=== PATIENT | female | born 1945 | race Caucasian/White ===

== ENCOUNTER 2024-12-14 17:03 | Emergency (ER) | payer OTHER, MEDICARE ==
--- NOTE | 2024-12-14 18:00 | RAD REPORT ---
EXAMINATION: CT HEAD WITHOUT CONTRAST CT CERVICAL SPINE WITHOUT CONTRAST CLINICAL INDICATION: Head and neck injury status post fall. Head and neck pain TECHNIQUE: Axial CT images from the skull base to the vertex without intravenous contrast. Axial CT i mages through the cervical spine were obtained without intravenous contrast. Sagittal and coronal reformatted images were created from the data set. Coronal and sagittal reformatted images were creat ed from the data set. One or more of the following dose reduction techniques were used: Automated exposure control, adjustment of the mA and/or kV according to patient size, and/or iterative reconstr uction. Unless otherwise specified, incidental findings do not require dedicated imaging follow-up. [id number]. Comparison: 2012 FINDINGS: An intracranial bleed is not seen. Ventricles are normal in caliber. No significant hypodensity within the brain No extra-axial fluid collection. No fluid within the sinuses/mastoids Some images are created by patient motion artifact. No fracture or dislocation is seen involving the cervical spine. IMPRESSION: No acute intracranial abnormality noted A cervical fracture is not seen. If the patient continues to have symptoms to suggest acute TICKER WIRER/spinal pathology then MRI would be rec ommended
--- NOTE | 2024-12-14 18:00 | RAD REPORT ---
EXAM: CT CHEST, ABDOMEN AND PELVIS WITHOUT CONTRAST CLINICAL INDICATION: Chest and abdominal pain status post fall TECHNIQUE: CT chest, abdomen and pelvis was performed, without IV contrast, as per department protoco l. Axial, sagittal and coronal reconstructions were obtained. One or more of the following dose reduction techniques were used: Automated exposure control, adjustment of the mA and/or kV according to the patient size, and/or iterative reconstruction. Unless otherwise specified, incidental findings do not require dedicated imaging follow-up. The lack of IV and oral contrast limits evaluation of the mediastinum, artis, vessels, organs and amalia l. COMPARISON: None FINDINGS: A pulmonary contusion not seen. No mediastinal hematoma. Watchman device within the heart. Multiple, bilateral pulmonary nodules vary in size from 1 to 7 mm. No pleural effusion. No pericardial effusion. Liver, spleen, pancreas, adrenals kidneys and bladder do not demonstrate a traumatic injury. Mild to moderate right hydronephrosis. An obstructing ureteral calculus not seen. Several right renal calculi are present. Large amount stool throughout the colon. There is no evidence of diverticulitis Postsurgical changes lumbar spine Neurostimulator device in place. Contusion subcutaneous tissues left hip. 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
--- NOTE | 2024-12-14 18:07 | EDPHYS ---
Physician Documentation [facility] Name: Mimi Carney Age: 79 yrs Sex: Female : 1945 Arrival Date: 12/14/2024 Time: 17:03 Bed 17 Private MD: ED Physician Alexandru Law HPI: 12/14 17:10 This 79 yrs old Female presents to ER via Unassigned with complaints of fall. sb4 17:12 Sustained a mechanical fall this afternoon, hit her head and landed on her left sb4 hip/lower back. No loss of consciousness, is on Plavix. Was able to ambulate. Is mainly complaining of pain in her left hip/lower back. Has no other injuries or complaints at this time. Historical: - Allergies: 17:17 NSAIDS; jb4 17:17 tramadol; jb4 17:17 Vioxx; jb4 - PMHx: 17:17 Lung Ca; thyroid CA; HTN; jb4 - PSHx: 17:17 Watchmens procedure; bladder stimulator; jb4 - Immunization history:: Adult Immunizations up to date. - Infectious Disease History:: Denies. - Social history:: Smoking status: Patient denies any tobacco usage or history of. ROS: 17:12 Constitutional: Negative for fever, chills, and weight loss, sb4 17:12 MS/extremity: Positive for injury or acute deformity, pain, of the left hip, 17:12 All other systems are negative, Exam: 17:12 Constitutional: This is a well developed, well nourished patient who is awake, alert, sb4 and in no acute distress. Head/Face: Normocephalic, atraumatic. Eyes: Extra-ocular motions intact. Periorbital areas with no swelling, redness, or edema. ENT: Mucous membranes moist. Respiratory: No increased work of breathing, no retractions or nasal flaring. Abdomen/GI: Soft, non-tender, no distension. Skin: Warm, dry with normal turgor. Normal color with no rashes, no lesions, and no evidence of cellulitis. MS/ Extremity: Pulses equal, no cyanosis. Neurovascular intact. Full, normal range of motion. 17:12 Neck: C-spine: Nexus Criteria: Nexus criteria: no cervical midline tenderness, patient is not intoxicated, mental status is normal, no focal/neurologic deficits, and no painful distracting injuries are present, Vital Signs: 17:08 BP 169 / 77; Pulse 58; Resp 16; Pulse Ox 100% on R/A; Weight 69.85 kg (M); Height 5 ft. jb4 2 in. (R); Pain 7/10; 18:45 BP 171 / 92; Pulse 57; Resp 16; Pulse Ox 99% on R/A; jb4 17:08 Body Mass Index 28.17 (69.85 kg, 157.48 cm) jb4 17:08 Pain Scale: Adult jb4 MDM: 17:08 Medical Screening Exam initiated sb4 17:13 Differential diagnosis: closed head injury, contusion, fracture, multiple trauma, sb4 sprain, strain. 18:07 Data reviewed: vital signs, nurses notes, EMS record, radiologic studies, and as a sb4 result, I will discharge patient. Care significantly affected by the following chronic conditions: Hypertension, Cancer. Counseling: I had a detailed discussion with the patient and/or guardian regarding the historical points, exam findings, and any diagnostic results supporting the discharge/admit diagnosis, the presence of at least one elevated blood pressure reading (>120/80) during this emergency department visit, radiology results, the need for outpatient follow up, for definitive care, to return to the emergency department if symptoms worsen or persist or if there are any questions or concerns that arise at home. Special discussion: I discussed with the patient the need to follow-up with the PCP/specialist for the noted incidental finding on X-ray/CT scanning. ED course: Discussed pulmonary nodules that were noted on CAT scan, patient states that she is aware of them. 12/14 17:08 Order name: Head C Spine MPR Wo Con CT; Complete Time: 18:01 sb4 12/14 17:08 Order name: Chest Abdomen Pelvis Wo Con CT; Complete Time: 18:01 sb4 Administered Medications: 18:39 Drug: Hydrocodone-Acetaminophen PO (7.5 mg-325 mg) 1 tabs PO once Route: PO; jb4 18:39 Drug: Ondansetron Oral Disintegrating Tablet Oral Disintegrating Tablet 4 mg PO once jb4 Route: PO; Disposition Summary: 12/14/24 18:06 Discharge Ordered Notes: Location: Home sb4 Problem: new sb4 Symptoms: have improved sb4 Condition: Stable sb4 Diagnosis - Fall on same level, unspecified sb4 - Contusion of left hip sb4 Followup: sb4 - With: Private Physician - When: As needed - Reason: Recheck today's complaints, Re-evaluation by your physician Discharge Instructions: - Discharge Summary Sheet sb4 - Musculoskeletal Pain sb4 - Fall Prevention in the Home, Adult, [id number] sb4 - Hip Pain sb4 Forms: - Patient Portal Instructions sb4 - Leadership Thank You Letter sb4 Signatures: Dispatcher [employer] Samson Perez RN RN jb4 Chelsie Mazariegos PA-C PA-C sb4
--- NOTE | 2024-12-14 18:07 | ER ---
Nurse's Notes [facility] Name: Mimi Carney Age: 79 yrs Sex: Female : 1945 Arrival Date: 12/14/2024 Time: 17:03 Bed 17 Private MD: Diagnosis: Fall on same level, unspecified;Contusion of left hip Presentation: 12/14 17:08 Chief complaint: EMS states: Pt fell tripping over an object at home. Pt reports left jb4 hip pain that radiates to her lower back. Reports hitting her head but denies LOC, has a minor skin tear to the left elbow. Pt is on plavix. Coronavirus screen: At this time, the client does not indicate any symptoms associated with coronavirus-19. Ebola Screen: No symptoms or risks identified at this time. Initial Sepsis Screen: Does the patient meet any 2 criteria? No. Patient's initial sepsis screen is negative. Does the patient have a suspected source of infection? No. Patient's initial sepsis screen is negative. Risk Assessment: Do you want to hurt yourself or someone else? Patient reports no desire to harm self or others. Onset of symptoms was December 14, 2024. Transition of care: patient was not received from another setting of care. 17:08 Method Of Arrival: EMS: [facility] jb4 17:08 Acuity: LEONIDAS 3 jb4 Historical: - Allergies: 17:17 NSAIDS; jb4 17:17 tramadol; jb4 17:17 Vioxx; jb4 - PMHx: 17:17 Lung Ca; thyroid CA; HTN; jb4 - PSHx: 17:17 Watchmens procedure; bladder stimulator; jb4 - Immunization history:: Adult Immunizations up to date. - Infectious Disease History:: Denies. - Social history:: Smoking status: Patient denies any tobacco usage or history of. Screenin:[address] [facility] ED Fall Risk Assessment (Adult) History of falling in the last 3 months, jb4 including since admission No falls in past 3 months (0 pts) Confusion or Disorientation No (0 pts) Intoxicated or Sedated No (0 pts) Impaired Gait No (0 pts) Mobility Assist Device Used No (0 pt) Altered Elimination No (0 pt) Score/Fall Risk Level 0 - 2 = Low Risk Oriented to surroundings, Maintained a safe environment. Abuse screen: Denies threats or abuse. Nutritional screening: No deficits noted. Tuberculosis screening: No symptoms or risk factors identified. Assessment: 17:30 General: Appears in no apparent distress. comfortable, Behavior is calm, cooperative, jb4 appropriate for age. Pain: Complains of pain in left hip Pain radiates to left lower back Pain currently is 7 out of 10 on a pain scale. Quality of pain is described as aching. Neuro: Level of Consciousness is awake, alert, obeys commands, Oriented to person, place, time, situation. Cardiovascular: Patient's skin is warm and dry. Respiratory: Airway is patent Respiratory effort is even, unlabored, Respiratory pattern is regular, symmetrical. Derm: Skin is intact, Skin is pink, warm \T\ dry. Musculoskeletal: Circulation, motion, and sensation intact. Range of motion: intact in all extremities. 18:45 Reassessment: Patient appears in no apparent distress at this time. Patient and/or jb4 family updated on plan of care and expected duration. Pain level reassessed. Patient is alert/active/playful, equal unlabored respirations, skin warm/dry/pink. Vital Signs: 17:08 BP 169 / 77; Pulse 58; Resp 16; Pulse Ox 100% on R/A; Weight 69.85 kg (M); Height 5 ft. jb4 2 in. (R); Pain 7/10; 18:45 BP 171 / 92; Pulse 57; Resp 16; Pulse Ox 99% on R/A; jb4 17:08 Body Mass Index 28.17 (69.85 kg, 157.48 cm) jb4 17:08 Pain Scale: Adult jb4 ED Course: 17:07 Patient arrived in ED. bd 17:08 Chelsie Mazariegos PA-C is PHCP. sb4 17:08 Alexandru Law MD is Attending Physician. sb4 17:17 Triage completed. jb4 17:24 Arm band placed on right wrist. jb4 17:43 Head C Spine MPR Wo Con CT In Process Unspecified. EDMS 17:43 Chest Abdomen Pelvis Wo Con CT In Process Unspecified. EDMS 18:45 Patient has correct armband on for positive identification. Bed in low position. Call jb4 light in reach. Side rails up X 1. Provided Education on: plan of care. 18:45 No provider procedures requiring assistance completed. Patient did not have IV access jb4 during this emergency room visit. Administered Medications: 18:39 Drug: Hydrocodone-Acetaminophen PO (7.5 mg-325 mg) 1 tabs PO once Route: PO; jb4 18:39 Drug: Ondansetron Oral Disintegrating Tablet Oral Disintegrating Tablet 4 mg PO once jb4 Route: PO; Medication: 18:45 VIS not applicable for this client. jb4 Outcome: 18:06 Discharge ordered by . sb4 18:45 Discharged to home via wheelchair, with family, jb4 18:45 Condition: stable 18:45 Discharge instructions given to patient, Instructed on discharge instructions, follow up and referral plans. Demonstrated understanding of instructions, follow-up care, 18:57 Patient left the ED. bd Signatures: Dispatcher [employer] EDMS Jammie Alcaraz James, RN RN jb4 Chelsie Mazariegos PA-C PA-C sb4
[2024-12-14] MEDS ORDERED: HYDROCODONE/APAP 7.5/325 MG TAB ONE (18:32)
[2024-12-14] MEDS ORDERED: ONDANSETRON 4 MG (ODT) TAB ONE (18:32)
[2024-12-15 02:35] VITALS: BP 169/77; O2SAT 100
== END 2024-12-14 18:57 | disposition home or self-care (01) ==
LOC: ER 17:03
DX: S70.02XA Contusion of left hip, initial encounter (principal); W18.30XA Fall on same level, unspecified, initial encounter
CPT/HCPCS: 70450; 71250; 72125; 74176; 99283; Q0162